=== PATIENT | female | born 1985 | race Caucasian/White ===

== ENCOUNTER 2018-10-31 07:42 | Outpatient (CLI) | payer OTHER ==
[~2018-10-31 07:42] MED LIST: INTESTINEX1 CAP PO
== END 2018-10-31 15:16 | disposition home or self-care (01) ==
LOC: LAB 07:42
DX: N39.0 Urinary tract infection, site not specified (principal); E55.9 Vitamin D deficiency, unspecified; R19.00 Intra-abdominal and pelvic swelling, mass and lump, unspecified site; N91.2 Amenorrhea, unspecified; E78.49 Other hyperlipidemia; E34.8 Other specified endocrine disorders; N95.1 Menopausal and female climacteric states; E23.6 Other disorders of pituitary gland; N73.9 Female pelvic inflammatory disease, unspecified; A60.04 Herpesviral vulvovaginitis; Z34.90 Encounter for supervision of normal pregnancy, unspecified, unspecified trimester

== ENCOUNTER 2019-11-04 07:28 | Outpatient (CLI) | payer OTHER | END 2019-11-04 07:35 | disposition home or self-care (01) | LOC: LAB 07:28 | DX: A53.0 Latent syphilis, unspecified as early or late (principal); E07.89 Other specified disorders of thyroid; Z02.89 Encounter for other administrative examinations; Z11.4 Encounter for screening for human immunodeficiency virus [HIV] ==

== ENCOUNTER 2020-12-19 20:02 | Emergency (ER) | payer OTHER ==
[~2020-12-19] VITALS: Ht 162.6 cm; Wt 90.7 kg
[2020-12-19] MEDS ORDERED: AVAPRO300 MG (20:15)
[2020-12-19] MEDS ORDERED: TOPROL XL25 M1 (20:16)
[2020-12-19] MEDS ORDERED: CRESTOR5 MG (20:16)
== END 2020-12-20 01:34 | disposition home or self-care (01) ==
LOC: ER 20:02
DX: S90.32XA Contusion of left foot, initial encounter (principal); W19.XXXA Unspecified fall, initial encounter; Y93.89 Activity, other specified; Y92.89 Other specified places as the place of occurrence of the external cause; Y99.8 Other external cause status

== ENCOUNTER → 2021-07-24 | Emergency (ER) | payer OTHER ==
[~2021-07-24] MED LIST changes: +AVAPRO300 MG; +CRESTOR5 MG; +TOPROL XL25 M1
== END | disposition left against medical advice (07) ==
LOC: ER 17:12
DX: Z53.21 Procedure and treatment not carried out due to patient leaving prior to being seen by health care provider (principal)